=== PATIENT | female | born 1985 | race African-American/Black ===

== ENCOUNTER 2017-06-03 21:30 | Emergency (ER) | payer OTHER ==
[2017-06-03] MEDS: IPRATRPIUM/ALBUTEROL 0.5/2.5MG 3 ML NEBU. NEB (22:16)
[2017-06-03] MEDS: predniSONE 20 MG TABLET PO (22:28)
== END 2017-06-03 22:55 | disposition home or self-care (01) ==
LOC: ER 21:30
DX: J45.901 Unspecified asthma with (acute) exacerbation (principal); Z79.899 Other long term (current) drug therapy
CPT/HCPCS: 94640; 99283-25; J7512; J7620

== ENCOUNTER 2017-11-18 10:46 | Emergency (ER) | payer OTHER ==
[~2017-11-18] VITALS: Ht 172.7 cm; Wt 95.3 kg
[~2017-11-18 10:46] MED LIST: PRED50TA PO
[2017-11-18 12:11] LABS: BILIRUBIN,URINE NEGATIVE (NEG); CLARITY,URINE CLEAR; COLOR,URINE YELLOW; NITRITE,URINE NEGATIVE (NEG); PH,URINE 6.5; PROTEIN,URINE NEGATIVE (NEG-TRACE); UROBILINOGEN,URINE 0.2 mg/dL (0.2 mg/dL)
[2017-11-18 12:22] LABS: BACTERIA,URINE 0 /HPF (0-FEW); RBC,URINE 0 /HPF (0-2); SQUAMOUS EPITHELIAL CELL,UR MANY /LPF
[2017-11-18 13:07] VITALS: BP 124/69
--- NOTE | 2017-11-18 13:14 | RAD ---
EXAM: Obstetrics sonogram. HISTORY: Pain. TECHNIQUE: Sonographic imaging of a gravid uterus was performed. COMPARISON: None. FINDINGS: There is a single intrauterine fetus in cephalic presentation with a heart rate of 139 bpm. The cervix is closed and measures 4.7 cm in length. There is a grade 1 anterolisthesis and without evidence of placenta previa. The biparietal diameter is 4.29 cm, corresponding with 19 weeks and 0 days. The head circumference is 16.57 cm, corresponding with 19 weeks and 2 days. The abdominal circumference is 13.52 cm, corresponding with 19 weeks and 0 days. The femoral length is 2.91 cm, corresponding with 19 weeks and 0 days. The estimated gestational age based on combined ultrasound measurements is 19 weeks and 1 day. The MAGDALENA is 04/13/2018. IMPRESSION: 1. Single intrauterine fetus with an estimated gestational age of 19 weeks and 1 day and heart rate of 139 bpm. 2. Note is made that a formal anatomy survey was not performed on this exam. A nonemergent anatomy survey is recommended at approximately 20 weeks gestation is not already performed at an outside facility. Electronically signed by: Chika Alicea MD (11/18/2017 1:10 PM) [facility]
[2017-11-18] MEDS ORDERED: NITR100C62 PO (13:25)
--- NOTE | 2017-11-18 13:25 | PHYS DOC ---
Past Medical History Past Medical History: Asthma, Other Additional Past Medical Histor: SEASONAL ALLERGIES Past Surgical History: Tonsillectomy, Other Additional Past Surgical Histo: D&C,T&A Alcohol Use: None Drug Use: None Adult General Chief Complaint Chief Complaint: ABDOMINAL PAIN IN HPI HPI Patient is a 32 year old female who presents with continued weeks and has intermittent lower abdominal cramping since this morning she rates her pain a 6 out of 10. Patient not take any Tylenol for pain. Review of Systems Review of Systems Constitutional: Denies fever or chills [] Eyes: Denies change in visual acuity, redness, or eye pain [] HENT: Denies nasal congestion or sore throat [] Respiratory: Denies cough or shortness of breath [] Cardiovascular: No additional information not addressed in HPI [] GI: Lower abdominal cramping pain. Denies nausea, vomiting, bloody stools or diarrhea [] : Denies dysuria or hematuria [] Musculoskeletal: Denies back pain or joint pain [] Integument: Denies rash or skin lesions [] Neurologic: Denies headache, focal weakness or sensory changes [] Endocrine: Denies polyuria or polydipsia [] All other systems were reviewed and found to be within normal limits, except as documented in this note. Allergies Allergies Allergies Coded Allergies Type Severity Reaction Last Updated Verified No Known Drug Allergies 11/03/14 No Physical Exam Physical Exam Constitutional: Well developed, well nourished, no acute distress, non-toxic appearance. [] HENT: Normocephalic, atraumatic, bilateral external ears normal, oropharynx moist, no oral exudates, nose normal. [] Eyes: PERRLA, EOMI, conjunctiva normal, no discharge. [] Neck: Normal range of motion, no tenderness, supple, no stridor. [] Cardiovascular:Heart rate regular rhythm, no murmur [] Lungs & Thorax: Bilateral breath sounds clear to auscultation [] Abdomen: Bowel sounds normal, soft, no tenderness, no masses, no pulsatile masses. [] Skin: Warm, dry, no erythema, no rash. [] Back: No tenderness, no CVA tenderness. [] Extremities: No tenderness, no cyanosis, no clubbing, ROM intact, no edema. [] Neurologic: Alert and oriented X 3, normal motor function, normal sensory function, no focal deficits noted. [] Psychologic: Affect normal, judgement normal, mood normal. [] Current Patient Data Vital Signs Vital Signs Date Time Temp Pulse Resp B/P (MAP) Pulse Ox O2 Delivery O2 Flow Rate FiO2 11/18/17 13:07 90 124/69 (87) 96 Room Air 11/18/17 11:27 98.1 14 98.1 Lab Values Laboratory Tests Test 11/18/17 12:00 Urine Collection Type Unknown Urine Color Yellow Urine Clarity Clear Urine pH 6.5 Urine Specific [place] 1.010 Urine Protein Negative mg/dL (NEG-TRACE) Urine Glucose (UA) Negative mg/dL (NEG) Urine Ketones (Stick) Negative mg/dL (NEG) Urine Blood Negative (NEG) Urine Nitrite Negative (NEG) Urine Bilirubin Negative (NEG) Urine Urobilinogen Dipstick 0.2 mg/dL (0.2 mg/dL) Urine Leukocyte Esterase Trace (NEG) Urine RBC 0 /HPF (0-2) Urine WBC 5-10 /HPF (0-4) Urine Squamous Epithelial Cells Many /LPF Urine Bacteria 0 /HPF (0-FEW) EKG EKG [] Radiology/Procedures Radiology/Procedures US Impressions: [facility] [address] [place], [place] [id number] IMAGING REPORT Signed PATIENT: UGO NEAL ACCOUNT: [id number] : 1985 LOCATION: ER AGE: 32 SEX: F EXAM STATUS: REG ER ORD. PHYSICIAN: GUIDO ESTEVEZ APRN REASON: abdominal pain. 19 weeks PROCEDURE: PREG MORE THAN OR EQ TO 14 WKS EXAM: Obstetrics sonogram. HISTORY: Pain. TECHNIQUE: Sonographic imaging of a gravid uterus was performed. COMPARISON: None. FINDINGS: There is a single intrauterine fetus in cephalic presentation with a heart rate of 139 bpm. The cervix is closed and measures 4.7 cm in length. There is a grade 1 anterolisthesis and without evidence of placenta previa. The biparietal diameter is 4.29 cm, corresponding with 19 weeks and 0 days. The head circumference is 16.57 cm, corresponding with 19 weeks and 2 days. The abdominal circumference is 13.52 cm, corresponding with 19 weeks and 0 days. The femoral length is 2.91 cm, corresponding with 19 weeks and 0 days. The estimated gestational age based on combined ultrasound measurements is 19 weeks and 1 day. The MAGDALENA is 04/13/2018. IMPRESSION: 1. Single intrauterine fetus with an estimated gestational age of 19 weeks and 1 day and heart rate of 139 bpm. 2. Note is made that a formal anatomy survey was not performed on this exam. A nonemergent anatomy survey is recommended at approximately 20 weeks gestation is not already performed at an outside facility. Electronically signed by: Chika Lopez MD (11/18/2017 1:10 PM) [facility] DICTATED and SIGNED BY: CHIKA LOPEZ MD DATE: 11/18/17 7682 Course & Med Decision Making Course & Med Decision Making Patient is a 32 year old female who presents with continued weeks and has intermittent lower abdominal cramping since this morning she rates her pain a 6 out of 10. Patient not take any Tylenol for pain. Patient states she saw her OB Dr. Mcmullen on and everything was fine. Patient is due April 11. Patient is 5 para 4. Patient denies any vaginal bleeding or vaginal discharge. Patient denies any urinary symptoms, fever. And is afebrile here in the ED and has no abdominal tenderness with palpation. Ultrasound shows no acute findings. Patient's urinalysis shows a urinary tract infection which patient will be treated with Macrobid. Stable and sent home. Patient to follow- up with her OB doc [] Kylah Disclaimer Dragon Disclaimer This electronic medical record was generated, in whole or in part, using a voice recognition dictation system. Departure Departure Impression: Primary Impression: Urinary tract infection Disposition: HOME, SELF-CARE Condition: STABLE Referrals: AURELIANO FERGUSON MD (PCP) Patient Instructions: - Urinary Tract Infection Additional Instructions: FOLLOW UP WITH YOUR OB DOCTOR Scripts Nitrofurantoin Monohyd/M-Cryst (MACROBID 100 MG CAPSULE) 100 Mg Capsule 1 CAP PO BID, #14 CAP Prov: GUIDO ESTEVEZ APRN 11/18/17 Problem Qualifiers Primary Impression: Urinary tract infection Urinary tract infection type: site unspecified Hematuria presence: without hematuria Qualified Codes: N39.0 - Urinary tract infection, site not specified BAFGUIDO GONSALEZ APRN Nov 18, 2017 13:25
== END 2017-11-18 13:44 | disposition home or self-care (01) ==
LOC: ER 10:46
DX: O23.42 Unspecified infection of urinary tract in pregnancy, second trimester (principal); O99.512 Diseases of the respiratory system complicating pregnancy, second trimester; J45.909 Unspecified asthma, uncomplicated; Z3A.19 19 weeks gestation of pregnancy
CPT/HCPCS: 76805; 81001; 87086; 99285-25

== ENCOUNTER 2018-10-24 08:22 | Emergency (ER) | payer OTHER ==
[~2018-10-24] VITALS: Ht 172.7 cm; Wt 94.3 kg
[~2018-10-24 08:22] MED LIST changes: +NITR100C62 PO
--- NOTE | 2018-10-24 08:39 | PHYS DOC ---
Past Medical History Past Medical History: Asthma, Other Additional Past Medical Histor: SEASONAL ALLERGIES (YUNIER HAN APRN) Past Surgical History: Tonsillectomy, Other Additional Past Surgical Histo: D&C,T&A (YUNIER HAN APRN) Alcohol Use: None Drug Use: None (YUNIER HAN APRN) Adult General Chief Complaint Chief Complaint: ABDOMINAL PAIN HPI HPI Patient is a 33 year old female with history of asthma who presents to the ED today complaining of 8-7 out of 10 constant cramping mid abdominal pain that began early this morning. Patient denies any exacerbating or relieving factors. She states her last menstrual cycle was June 24, 2018 though she states somehow in September she had some spotting, she states she doesn't know if she is or not. (YUNIER HAN APRN) Review of Systems Review of Systems Constitutional: Denies fever or chills [] Eyes: Denies change in visual acuity, redness, or eye pain [] HENT: Denies nasal congestion or sore throat [] Respiratory: Denies cough or shortness of breath [] Cardiovascular: No additional information not addressed in HPI [] GI: Reports mid abdominal pain, denies nausea, vomiting, bloody stools or diarrhea [] : Denies dysuria or hematuria [] Musculoskeletal: Denies back pain or joint pain [] Integument: Denies rash or skin lesions [] Neurologic: Denies headache, focal weakness or sensory changes [] All other systems were reviewed and found to be within normal limits, except as documented in this note. (YUNIER HAN APRN) Allergies Allergies Allergies Coded Allergies Type Severity Reaction Last Updated Verified No Known Drug Allergies 11/03/14 No (GLENNY HOUSE DO) Physical Exam Physical Exam Constitutional: Well developed, well nourished, no acute distress, non-toxic appearance. [] HENT: Normocephalic, atraumatic, bilateral external ears normal, oropharynx moist, no oral exudates, nose normal. [] Eyes: PERRLA, EOMI, conjunctiva normal, no discharge. [] Neck: Normal range of motion, no tenderness, supple, no stridor. [] Cardiovascular:Heart rate regular rhythm, no murmur [] Lungs & Thorax: Bilateral breath sounds clear to auscultation [] Abdomen: Bowel sounds normal, soft, no tenderness, no masses, no pulsatile masses. [] Skin: Warm, dry, no erythema, no rash. [] Back: No tenderness, no CVA tenderness. [] Extremities: No tenderness, no cyanosis, no clubbing, ROM intact, no edema. [] Neurologic: Alert and oriented X 3, normal motor function, normal sensory function, no focal deficits noted. [] Psychologic: Affect normal, judgement normal, mood normal. [] (YUNIER HAN APRN) Current Patient Data Vital Signs Vital Signs Date Time Temp Pulse Resp B/P (MAP) Pulse Ox O2 Delivery O2 Flow Rate FiO2 10/24/18 10:47 119/79 (92) 10/24/18 08:26 97.5 80 18 97 Room Air 97.5 (HOUSE,GLENNY R DO) Lab Values Laboratory Tests Test 10/24/18 08:37 10/24/18 08:39 10/24/18 08:56 Urine Collection Type Unknown Urine Color Yellow Urine Clarity Clear Urine pH 7.0 Urine Specific [place] 1.010 Urine Protein Negative mg/dL (NEG-TRACE) Urine Glucose (UA) Negative mg/dL (NEG) Urine Ketones (Stick) Negative mg/dL (NEG) Urine Blood Negative (NEG) Urine Nitrite Negative (NEG) Urine Bilirubin Negative (NEG) Urine Urobilinogen Dipstick 1.0 mg/dL (0.2 mg/dL) Urine Leukocyte Esterase Small (NEG) Urine RBC Occ /HPF (0-2) Urine WBC 5-10 /HPF (0-4) Urine Squamous Epithelial Cells Many /LPF Urine Bacteria Few /HPF (0-FEW) Urine Opiates Screen Neg (NEG) Urine Methadone Screen Neg (NEG) Urine Barbiturates Neg (NEG) Urine Phencyclidine Screen Neg (NEG) Urine Amphetamine/Methamphetamine Neg (NEG) Urine Benzodiazepines Screen Neg (NEG) Urine Cocaine Screen Neg (NEG) Urine Cannabinoids Screen Neg (NEG) Urine Ethyl Alcohol Neg (NEG) POC Urine HCG, Qualitative Hcg positive (Negative) White Blood Count 8.5 x10^3/uL (4.0-11.0) Red Blood Count 4.32 x10^6/uL (3.50-5.40) Hemoglobin 13.5 g/dL (12.0-15.5) Hematocrit 38.8 % (36.0-47.0) Mean Corpuscular Volume 90 fL (79-100) Mean Corpuscular Hemoglobin 31 pg (25-35) Mean Corpuscular Hemoglobin Concent 35 g/dL (31-37) Red Cell Distribution Width 13.4 % (11.5-14.5) Platelet Count 195 x10^3/uL (140-400) Neutrophils (%) (Auto) 68 % (31-73) Lymphocytes (%) (Auto) 20 % (24-48) L Monocytes (%) (Auto) 9 % (0-9) Eosinophils (%) (Auto) 4 % (0-3) H Basophils (%) (Auto) 0 % (0-3) Neutrophils # (Auto) 5.7 x10^3/uL (1.8-7.7) Lymphocytes # (Auto) 1.7 x10^3/uL (1.0-4.8) Monocytes # (Auto) 0.7 x10^3/uL (0.0-1.1) Eosinophils # (Auto) 0.3 x10^3/uL (0.0-0.7) Basophils # (Auto) 0.0 x10^3/uL (0.0-0.2) Maternal Serum HCG Beta Subunit 44349 mIU/mL (0-5) H Sodium Level 137 mmol/L (136-145) Potassium Level 3.9 mmol/L (3.5-5.1) Chloride Level 103 mmol/L (98-107) Carbon Dioxide Level 25 mmol/L (21-32) Anion Gap 9 (6-14) Blood Urea Nitrogen 10 mg/dL (7-20) Creatinine 0.6 mg/dL (0.6-1.0) Estimated GFR (Cockcroft-Gault) 139.3 BUN/Creatinine Ratio 17 (6-20) Glucose Level 110 mg/dL (70-99) H Calcium Level 9.5 mg/dL (8.5-10.1) Total Bilirubin 0.6 mg/dL (0.2-1.0) Aspartate Amino Transferase (AST) 99 U/L (15-37) H Alanine Aminotransferase (ALT) 49 U/L (14-59) Alkaline Phosphatase 59 U/L (46-116) Total Protein 7.0 g/dL (6.4-8.2) Albumin 3.2 g/dL (3.4-5.0) L Albumin/Globulin Ratio 0.8 (1.0-1.7) L Lipase 112 U/L (73-393) Ethyl Alcohol Level < 10 mg/dL (0-10) Laboratory Tests 10/24/18 08:56 Laboratory Tests 10/24/18 08:56 (HARSHGLENNY Valdemar HEATH) Lab Values Laboratory Tests Test 10/24/18 08:37 10/24/18 08:39 10/24/18 08:56 Urine Collection Type Unknown Urine Color Yellow Urine Clarity Clear Urine pH 7.0 Urine Specific [place] 1.010 Urine Protein Negative mg/dL (NEG-TRACE) Urine Glucose (UA) Negative mg/dL (NEG) Urine Ketones (Stick) Negative mg/dL (NEG) Urine Blood Negative (NEG) Urine Nitrite Negative (NEG) Urine Bilirubin Negative (NEG) Urine Urobilinogen Dipstick 1.0 mg/dL (0.2 mg/dL) Urine Leukocyte Esterase Small (NEG) Urine RBC Occ /HPF (0-2) Urine WBC 5-10 /HPF (0-4) Urine Squamous Epithelial Cells Many /LPF Urine Bacteria Few /HPF (0-FEW) Urine Opiates Screen Neg (NEG) Urine Methadone Screen Neg (NEG) Urine Barbiturates Neg (NEG) Urine Phencyclidine Screen Neg (NEG) Urine Amphetamine/Methamphetamine Neg (NEG) Urine Benzodiazepines Screen Neg (NEG) Urine Cocaine Screen Neg (NEG) Urine Cannabinoids Screen Neg (NEG) Urine Ethyl Alcohol Neg (NEG) POC Urine HCG, Qualitative Hcg positive (Negative) White Blood Count 8.5 x10^3/uL (4.0-11.0) Red Blood Count 4.32 x10^6/uL (3.50-5.40) Hemoglobin 13.5 g/dL (12.0-15.5) Hematocrit 38.8 % (36.0-47.0) Mean Corpuscular Volume 90 fL (79-100) Mean Corpuscular Hemoglobin 31 pg (25-35) Mean Corpuscular Hemoglobin Concent 35 g/dL (31-37) Red Cell Distribution Width 13.4 % (11.5-14.5) Platelet Count 195 x10^3/uL (140-400) Neutrophils (%) (Auto) 68 % (31-73) Lymphocytes (%) (Auto) 20 % (24-48) L Monocytes (%) (Auto) 9 % (0-9) Eosinophils (%) (Auto) 4 % (0-3) H Basophils (%) (Auto) 0 % (0-3) Neutrophils # (Auto) 5.7 x10^3/uL (1.8-7.7) Lymphocytes # (Auto) 1.7 x10^3/uL (1.0-4.8) Monocytes # (Auto) 0.7 x10^3/uL (0.0-1.1) Eosinophils # (Auto) 0.3 x10^3/uL (0.0-0.7) Basophils # (Auto) 0.0 x10^3/uL (0.0-0.2) Maternal Serum HCG Beta Subunit 81886 mIU/mL (0-5) H Sodium Level 137 mmol/L (136-145) Potassium Level 3.9 mmol/L (3.5-5.1) Chloride Level 103 mmol/L (98-107) Carbon Dioxide Level 25 mmol/L (21-32) Anion Gap 9 (6-14) Blood Urea Nitrogen 10 mg/dL (7-20) Creatinine 0.6 mg/dL (0.6-1.0) Estimated GFR (Cockcroft-Gault) 139.3 BUN/Creatinine Ratio 17 (6-20) Glucose Level 110 mg/dL (70-99) H Calcium Level 9.5 mg/dL (8.5-10.1) Total Bilirubin 0.6 mg/dL (0.2-1.0) Aspartate Amino Transferase (AST) 99 U/L (15-37) H Alanine Aminotransferase (ALT) 49 U/L (14-59) Alkaline Phosphatase 59 U/L (46-116) Total Protein 7.0 g/dL (6.4-8.2) Albumin 3.2 g/dL (3.4-5.0) L Albumin/Globulin Ratio 0.8 (1.0-1.7) L Lipase 112 U/L (73-393) Ethyl Alcohol Level < 10 mg/dL (0-10) Laboratory Tests 10/24/18 08:56 Laboratory Tests 10/24/18 08:56 (YUNIER HAN APRN) EKG EKG [] (YUNIER HAN APRN) Radiology/Procedures Radiology/Procedures []PROCEDURE: OB LIMITED OB ULTRASOUND, LIMITED Clinical Indication: Abdominal pain in . Comparison: None. Technique: Multiple grayscale images, color Doppler, and M-mode images of the uterus are obtained. Findings: There is a single intrauterine gestation in breech presentation. The placenta is fundal in location without evidence of placenta previa. The amount of amniotic fluid appears low normal. Cervix appears closed. Length is not measured. Biometrical data: BPD = 3.5 cm for 16 weeks 6 days. HC = 13.5 cm for 17 weeks 0 days. AC = 10 cm for 16 weeks 0 days. FL = 2.4 cm for 17 weeks 0 days. HC/AC ratio = 1.36. Overall, the estimated sonographic gestational age is 16 weeks and 5 days for an estimated date of delivery of April 05, 2019. The estimated date of delivery provided by the last menstrual period is March 31, 2019. Estimated weight is 162 +/- 24 grams. The estimated heart rate is 144 beats per minute. A complete anatomic survey is not performed due to early gestational age. This can be performed at 20 weeks gestation. Impression: Single live intrauterine gestation with estimated sonographic gestational age of 16 weeks and 5 days. Electronically signed by: Kermit Curry MD (10/24/2018 10:14 AM) [id number] DICTATED and SIGNED BY: KERMIT CURRY MD DATE: 10/24/18 1014 (YUNIER HAN APRN) Course & Med Decision Making Course & Med Decision Making Pertinent Labs and Imaging studies reviewed. (See chart for details) This is a 33-year-old female patient presented to the ED today with mid abdom inal pain that began this morning. Patient is also concerned she could be . Positive urine hCG making her G 5 P 4, beta-hCG 27,556, CBC with normal WBC, CMP with AST of 99, AST is normal, patient has no right upper quadrant tenderness. OB ultrasound was noted for an IUP 16 weeks 5 days. UA noted for small amount of leukocytes though it is contaminated. Considering she is and currently has no f/u will d/c with cephalexin, provided OB for f/u. (YUNIER HAN APRN) Dragon Disclaimer Dragon Disclaimer This electronic medical record was generated, in whole or in part, using a voice recognition dictation system. (YUNIER HAN APRN) Departure Departure Impression: Primary Impression: Urinary tract infection during Additional Impression: Disposition: 01 HOME, SELF-CARE Condition: STABLE Referrals: AURELIANO FERGUSON MD (PCP) TIEN AGUILA MD follow up in one week Patient Instructions: ABCs of , Abdominal Pain During , Urinary Tract Infection Additional Instructions: You were evaluated in the emergency room and noted to be as discussed follow up with an DRESS FITTER as soon as possible. You have UTI, please complete the antibiotics prescribed. Scripts Cephalexin (CEPHALEXIN) 500 Mg Capsule 1 CAP PO BID, #14 CAP Prov: JUDITHDuncanYUNIER PANDEY 10/24/18 Attending Signature Attending Signature I have reviewed the PA/VENETIAN BLIND ASSEMBLER's note and plan of care. I was available for consultation as needed during the patient's visit in the emergency department. I agree with the clinical impression, plan, and disposition. (GLENNY HOUSE DO) Problem Qualifiers Primary Impression: Urinary tract infection during Trimester: second trimester Qualified Codes: O23.42 - Unspecified infection of urinary tract in , second trimester Additional Impression: Weeks of gestation: 16 weeks Qualified Codes: Z3A.16 - 16 weeks gestation of YUNIER HAN APRN Oct 24, 2018 08:39 GLENNY HOUSE DO Oct 24, 2018 17:18
[2018-10-24 08:50] LABS: BILIRUBIN,URINE NEGATIVE (NEG); CLARITY,URINE CLEAR; COLOR,URINE YELLOW; NITRITE,URINE NEGATIVE (NEG); PROTEIN,URINE NEGATIVE (NEG-TRACE)
[2018-10-24 09:02] LABS: BACTERIA,URINE FEW /HPF (0-FEW); RBC,URINE OCC /HPF (0-2); SQUAMOUS EPITHELIAL CELL,UR MANY /LPF
[2018-10-24 09:05] LABS: BASO % 0 % (0-3); EOS # 0.3 x10^3/uL (0.0-0.7); EOS % 4 % (0-3); HEMATOCRIT 38.8 % (36.0-47.0); HEMOGLOBIN 13.5 g/dL (12.0-15.5); LYMPH # 1.7 x10^3/uL (1.0-4.8); LYMPH % 20 % (24-48); MEAN CORPUSCULAR HEMOGLOBIN 31 pg (25-35); MEAN CORPUSCULAR HGB CONC 35 g/dL (31-37); MEAN CORPUSCULAR VOLUME 90 fL (79-100); MONO # 0.7 x10^3/uL (0.0-1.1); MONO % 9 % (0-9); NEUT # 5.7 x10^3/uL (1.8-7.7); NEUT % 68 % (31-73); PLATELET COUNT 195 x10^3/uL (140-400); RED BLOOD COUNT 4.32 x10^6/uL (3.50-5.40); RED CELL DISTRIBUTION WIDTH 13.4 % (11.5-14.5); WHITE BLOOD COUNT 8.5 x10^3/uL (4.0-11.0)
[2018-10-24 09:18] LABS: BARBITURATES NEG (NEG); BENZODIAZEPINES NEG (NEG); CANNABINOIDS NEG (NEG); COCAINE NEG (NEG); METHADONE NEG (NEG); OPIATES NEG (NEG); PHENCYCLIDINE NEG (NEG)
[2018-10-24 09:21] LABS: CALCIUM 9.5 mg/dL (8.5-10.1); CREATININE 0.6 mg/dL (0.6-1.0); GFR 139.3; POTASSIUM 3.9 mmol/L (3.5-5.1)
[2018-10-24 09:27] LABS: ALBUMIN 3.2 g/dL (3.4-5.0); ALBUMIN/GLOBULIN RATIO 0.8 (1.0-1.7); TOTAL BILIRUBIN 0.6 mg/dL (0.2-1.0)
[2018-10-24 09:29] LABS: AMPHETAMINE/METHAMPHETAMINE NEG (NEG)
--- NOTE | 2018-10-24 10:18 | RAD ---
OB ULTRASOUND, LIMITED Clinical Indication: Abdominal pain in . Comparison: None. Technique: Multiple grayscale images, color Doppler, and M-mode images of the uterus are obtained. Findings: There is a single intrauterine gestation in breech presentation. The placenta is fundal in location without evidence of placenta previa. The amount of amniotic fluid appears low normal. Cervix appears closed. Length is not measured. Biometrical data: BPD = 3.5 cm for 16 weeks 6 days. HC = 13.5 cm for 17 weeks 0 days. AC = 10 cm for 16 weeks 0 days. FL = 2.4 cm for 17 weeks 0 days. HC/AC ratio = 1.36. Overall, the estimated sonographic gestational age is 16 weeks and 5 days for an estimated date of delivery of April 05, 2019. The estimated date of delivery provided by the last menstrual period is March 31, 2019. Estimated weight is 162 +/- 24 grams. The estimated heart rate is 144 beats per minute. A complete anatomic survey is not performed due to early gestational age. This can be performed at 20 weeks gestation. Impression: Single live intrauterine gestation with estimated sonographic gestational age of 16 weeks and 5 days. Electronically signed by: Kermit Curry MD (10/24/2018 10:14 AM) [id number]
[2018-10-24] MEDS ORDERED: CEPH500C PO (10:32)
[2018-10-24 10:47] VITALS: BP 119/79
== END 2018-10-24 10:49 | disposition home or self-care (01) ==
LOC: ER 08:22
DX: O23.42 Unspecified infection of urinary tract in pregnancy, second trimester (principal); O99.512 Diseases of the respiratory system complicating pregnancy, second trimester; J45.909 Unspecified asthma, uncomplicated; Z90.89 Acquired absence of other organs; Z3A.16 16 weeks gestation of pregnancy
CPT/HCPCS: 36415; 76815; 80053; 80307; 81001; 81025; 83690; 84702; 85025; 99285; G0480